=== PATIENT | male | born 1980 | race Caucasian/White ===

== ENCOUNTER 2020-02-02 16:04 | Emergency (ER) | payer SELFPAY ==
--- NOTE | 2020-02-02 16:10 | ER Document Report ---
ED Medical Screen (RME) - General Chief Complaint: Urinary Problem Stated Complaint: URINARY ISSUES Time Seen by Provider: 02/02/20 16:05 Mode of Arrival: Ambulatory Information source: Patient Notes: 39-year-old male presented to ED for complaint of blood in his urine with mild bilateral flank cramping. He is alert oriented respirations regular nonlabored speaking in full sentences. He states it is not severe pain. Patient states he has had abdominal cramping off and on during the week but the blood in his urine just started this afternoon a couple hours ago. He states the blood is very dark in his urine. 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 He has had abdominal cramps. I have greeted and performed a rapid initial assessment of this patient. A comprehensive ED assessment and evaluation of the patient, analysis of test results and completion of medical decision making process will be conducted by an additional ED providers. - Related Data Allergies/Adverse Reactions: No Known Allergies Allergy (Verified 03/26/13 15:44) Past Medical History - Immunizations Hx Diphtheria, Pertussis, Tetanus Vaccination: No
--- NOTE | 2020-02-02 16:37 | RADIOLOGY REPORT (SQ) ---
EXAM DESCRIPTION: U/S RETROPERITON (RENAL/AORTA) COMPLETED DATE/TIME: 02/02/2020 4:27 pm REASON FOR STUDY: Hematuria bilateral flank pain COMPARISON: None. TECHNIQUE: Grayscale images acquired of the kidneys and bladder and recorded on PACS. Additional stephanie ected color Doppler images recorded. LIMITATIONS: None. FINDINGS: RIGHT KIDNEY: Measures 13.9 x 5.3 x 6.0 cm. Normal echogenicity. No hydronephrosis. No gely cifications. LEFT KIDNEY: Measures 13.3 x 6.7 x 5.6 cm. Normal echogenicity. No hydronephrosis. No calcifications . BLADDER: Not visualized. IMPRESSION: No hydronephrosis. No renal calculi identified by ultrasound. TECHNICAL DOCUMENTATION: JOB ID: [id number] [employer]- All Rights Reserved Reading location - IP/workstation name: [email or web address]
[2020-02-02 16:45] LABS: ABSOLUTE BASOPHILS # (AUTO) 0.1 10^3/uL (0.0-0.2); ABSOLUTE EOSINOPHILS # (AUTO) 0.3 10^3/uL (0.0-0.6); ABSOLUTE NEUT (AUTO) 12.6 10^3/uL (1.7-8.2); BASOPHILS % (AUTO) 0.5 % (0-2); HEMATOCRIT 44.5 % (37.9-51.0); HEMOGLOBIN 15.6 g/dL (13.5-17.0); LYMPHOCYTES % (AUTO) 17.8 % (13-45); MEAN CORPUSCULAR HEMOGLOBIN 32.5 pg (27.0-33.4); MEAN CORPUSCULAR HGB CONC 34.9 g/dL (32.0-36.0); MEAN CORPUSCULAR VOLUME 93 fl (80-97); MONOCYTES % (AUTO) 5.7 % (3-13); PLATELET COUNT 326 10^3/uL (150-450); RED BLOOD COUNT 4.79 10^6/uL (4.35-5.55); RED CELL DISTRIBUTION WIDTH 13.3 % (11.5-14.0); TOTAL CELLS COUNTED % (AUTO) 100 %
--- NOTE | 2020-02-02 17:12 | ER Document Report ---
ED GI/ - General Chief Complaint: Abdominal Pain Stated Complaint: URINARY ISSUES Time Seen by Provider: 02/02/20 16:05 Mode of Arrival: Ambulatory Information source: Patient Notes: This 39-year-old male presents to the urgency department with a complaint of blood in his urine. He states that he was masturbating earlier and saw blood in the ejaculation. He then noted that when he went to urinate there was a pause in the stream and blood began to come from the penis and urine appeared to be bloody. He denies pain associated with the episode, however, did note stinging sensation. He denies prior history of similar episodes. He has a history of glomerulonephritis since as a child, however notes that he has had no problems as an adult. - Related Data Allergies/Adverse Reactions: No Known Allergies Allergy (Verified 03/26/13 15:44) Past Medical History - General Information source: Patient - Social History Smoking Status: Current Every Day Smoker Family History: Reviewed & Not Pertinent Patient has suicidal ideation: No Patient has homicidal ideation: No - Immunizations Hx Diphtheria, Pertussis, Tetanus Vaccination: No Review of Systems - Review of Systems Notes: Constitutional: Negative for fever. HENT: Negative for sore throat. Eyes: Negative for visual changes. Cardiovascular: Negative for chest pain. Respiratory: Negative for shortness of breath. Gastrointestinal: Negative for abdominal pain, vomiting or diarrhea. Genitourinary: + Hematuria Musculoskeletal: Negative for back pain. Skin: Negative for rash. Neurological: Negative for headaches, weakness or numbness. 10 point ROS negative except as marked above and in HPI. Physical Exam - Vital signs Vitals: Temp Pulse Resp BP Pulse Ox 98.2 F 86 18 136/72 H 95 02/02/20 16:07 02/02/20 16:07 02/02/20 16:07 02/02/20 16:07 02/02/20 16:07 - Notes Notes: PHYSICAL EXAMINATION: Physical Exam: General: Well-nourished well-developed 39-year-old male in no acute distress HEENT: NC/AT, pupils equal round and reactive to light, MM moist,nares clear, oropharynx clear, airway patent Neck: supple, no adenopathy, no masses. Good range of motion Lungs: clear, no wheezing, no rales no rhonchi CVS: Regular rate and rhythm no murmur gallop or rub Abdomen: Soft, active, nontender, no masses, no hepatosplenomegaly Ext: No edema, clubbing or cyanosis. Neuro: Alert and responsive, moving all 4 extremities on command, cranial nerves intact, no focal findings Skin: Intact no open lesions, no rash PSYCH: Normal mood, normal affect. Course - Re-evaluation Re-evalutation: 02/02/20 17:10 Patient notes that the urine for the specimen in the emergency department appeared to have cleared up he did not note any reddish discoloration or discomfort at that time. I have explained to him that the episode appears to be directly related to his masturbation and no other pathology. We will await findings of the urinalysis. 02/02/20 18:12 Urinalysis reveals hematuria, no pyuria, no bacteria negative nitrite. Patient is being discharged and can follow-up as an outpatient as needed. - Vital Signs Vital signs: Temp Pulse Resp BP Pulse Ox 98.2 F 86 18 136/72 H 95 02/02/20 16:07 02/02/20 16:07 02/02/20 16:07 02/02/20 16:07 02/02/20 16:07 - Laboratory Result Diagrams: 02/02/20 16:30 02/02/20 16:30 Laboratory results interpreted by me: 02/02/20 02/02/20 02/02/20 16:30 16:30 16:30 WBC 17.0 H Absolute Neuts (auto) 12.6 H BUN 21 H Urine Blood MODERATE H Urine Urobilinogen 4.0 H - Diagnostic Test Radiology reviewed: Image reviewed, Reports reviewed - Renal ultrasound: No acute findings, normal renal structure. Discharge - Discharge Clinical Impression: Hematuria Qualifiers: Hematuria type: gross Qualified Code(s): R31.0 - Gross hematuria Condition: Good Disposition: HOME, SELF-CARE Instructions: Hematuria ([facility]) Additional Instructions: You were diagnosed with blood in the urine in the emergency department today. It appears to be related to your activities prior to the onset of bleeding. Please abstain from sexual stimulation for the next 5 days and follow-up if you continue to see blood in the urine. If your symptoms worsen or if there are other concerns you may return to the emergency department for further evaluation.
[2020-02-02 17:16] LABS: ALBUMIN 4.4 g/dL (3.5-5.0); ALKALINE PHOSPHATASE 71 U/L (38-126); ANION GAP 8 (5-19); ASPARTATE AMINO TRANSFERASE 25 U/L (17-59); BILIRUBIN,TOTAL 0.4 mg/dL (0.2-1.3); BLOOD UREA NITROGEN 21 mg/dL (7-20); CALCIUM 9.6 mg/dL (8.4-10.2); CARBON DIOXIDE 27 mmol/L (22-30); CHLORIDE 104 mmol/L (98-107); CREATINE KINASE 70 U/L (55-170); GLUCOSE 86 mg/dL (75-110); POTASSIUM 4.4 mmol/L (3.6-5.0); TOTAL PROTEIN 7.1 g/dL (6.3-8.2)
[2020-02-02 17:32] LABS: APPEARANCE,URINE CLEAR; COLOR,URINE YELLOW; GLUCOSE, URINE NEGATIVE (NEGATIVE)
[2020-02-02 17:33] LABS: BILIRUBIN,URINE NEGATIVE (NEGATIVE); KETONES,URINE NEGATIVE (NEGATIVE); PROTEIN,URINE NEGATIVE (NEGATIVE); URINE SPECIFIC GRAVITY 1.028
[2020-02-02 18:30] VITALS: BP 122/85
== END 2020-02-02 18:29 | disposition home or self-care (01) ==
LOC: ER 16:04
DX: R31.0 Gross hematuria (principal); R10.9 Unspecified abdominal pain; R39.15 Urgency of urination; F17.200 Nicotine dependence, unspecified, uncomplicated
CPT/HCPCS: 36415; 76770; 80053; 81001; 82550; 85025; 99284